=== PATIENT | male | born 1955 ===

== ENCOUNTER 2020-11-10 13:24 | Emergency (ER) | payer SELFPAY ==
[2020-11-10 13:45] VITALS: PULSE 109; RESP 16
--- NOTE | 2020-11-10 13:54 | DI.RAD.S_ITS ---
PROCEDURE: XR CHEST 1V INDICATIONS: post intubation TECHNIQUE: One view of the chest was acquired. COMPARISON: None. FINDINGS: Surgical changes and devices: Endotracheal tube appears well positioned. A right IJ central line is well positioned. Lungs and pleura: Pulmonary edema is present, worse on the right. No pneumothorax or pleural effusion. Mediastinum: Mediastinal contours appear normal. Heart size is normal. Bones and chest wall: No suspicious bony lesions. Overlying soft tissues appear unremarkable. IMPRESSION: 1. Pulmonary edema. 2. Endotracheal tube and right central line are well positioned. Dictated by: Diogo Johnson M.D. on 11/10/2020 at 14:27 Approved by: Diogo Johnson M.D. on 11/10/2020 at 14:28
[2020-11-10 13:58] LABS: COVID19 -Nasal RAPID Negative (Negative)
--- NOTE | 2020-11-10 14:17 | DI.CT.S_ITS ---
PROCEDURE: CT HEAD/BRAIN WO CON INDICATIONS: code TECHNIQUE: Noncontrast 4.5 mm thick angled axial sections acquired from the foramen magnum to the vertex, with coronal and sagittal reformats. For radiation dose reduction, the following was used: automated exposure control, adjustment of mA and/or kV according to patient size. COMPARISON: None. FINDINGS: Image quality: Excellent. CSF spaces: Basal cisterns are patent. No extra-axial fluid collections. Ventricles are normal in size and shape. Brain: No midline shift. No intracranial masses or hemorrhage. Small focus of encephalomalacia in the right caudate nucleus. Periventricular hypodensity most pronounced posteriorly at the posterior horns is most consistent with chronic microvascular ischemic change. Mild calcified atherosclerotic plaque in the distal intracranial ICA. Skull and face: Calvarium and visualized facial bones are intact, without suspicious lesions. Sinuses: Visualized sinuses and mastoids are clear. IMPRESSION: 1. No acute intracranial hemorrhage. 2. Prior small right caudate nucleus lacunar infarct. 3. Findings most compatible with chronic microvascular ischemic disease. Dictated by: Steve Rapp M.D. on 11/10/2020 at 13:50 Approved by: Steve Rapp M.D. on 11/10/2020 at 13:54
[2020-11-10 14:20] LABS: Add Manual Diff / Slide Review NO; Basophils Absolute Auto 100 /uL (0-100); Basophils Percent Auto 0.5 % (0-2); Eosinophils Absolute Auto 100 /uL (0-450); Eosinophils Percent Auto 0.4 % (2-4); Hematocrit 50.5 % (41-53); Hemoglobin 15.3 g/dL (13.5-17.5); Lymphocytes Absolute Auto 6300 /uL (1100-4500); Lymphocytes Percent Auto 24.7 % (25-40); Mean Corpuscular HGB Conc 30.2 % (30-36); Mean Corpuscular Volume 99.4 fL (80-100); Monocytes Absolute Auto 1000 /uL (0-900); Monocytes Percent Auto 3.8 % (3-14); Neutrophils Absolute Auto 18100 /uL (1500-7000); Neutrophils Percent Auto 70.6 % (50-75); Platelet Count 234 X10^3/uL (150-400); Red Blood Cell Count 5.08 X10^6/uL (4.5-5.9); Red Cell Distribution Width 14.6 % (11.6-14.8); White Blood Cell Count 25.6 X10^3/uL (4.5-11.0)
--- NOTE | 2020-11-10 14:23 | DI.CT.S_ITS ---
PROCEDURE: CT ANGIO CHEST PE PROTOCOL INDICATIONS: CODE TECHNIQUE: After the administration of intravenous contrast, 2 mm thick sections acquired from the pulmonary apices to the posterior costophrenic angles. 3-dimensional maximum intensity projection (MIP) coronal and sagittal reformats were then acquired through the thorax. For radiation dose reduction, the following was used: automated exposure control, adjustment of mA and/or kV according to patient size. COMPARISON: [facility], CR, XR CHEST 1V, 11/10/2020, 13:55. FINDINGS: Image quality: Excellent. Pulmonary arteries: Pulmonary arteries are normal in size, and demonstrate no intraluminal filling defects to suggest pulmonary embolism. Lungs and pleura: Extensive ground-glass and consolidative opacity with a dependent predominance. Small right and trace left pleural effusions. No pneumothorax. Trace secretions in the trachea near the endotracheal tube balloon. Endotracheal tube is in the mid trachea and a 3.3 cm above the eric. Mediastinum: Right IJ central venous line with the tip in the middle 3rd of the SVC. Heart size is enlarged particularly the left ventricle, without pericardial effusion. RV to LV ratio less than 1. Mild coronary artery calcifications in the LAD and circumflex. No mediastinal or hilar adenopathy. Thoracic aorta is normal in caliber and enhancement. Esophagus is normal in caliber, without hiatal hernia. Bones and chest wall: No suspicious bony lesions. Nondisplaced sternal fracture. Right 2-4th and left 2nd-5th nondisplaced rib fractures. Thyroid gland is unremarkable. No axillary or supraclavicular adenopathy. Defibrillator pads. Abdomen: There is reflux of contrast into the intrahepatic IVC and hepatic veins. Visualized upper abdominal solid organs appear normal in the early arterial phase of enhancement. IMPRESSION: 1. No pulmonary embolism. 2. Extensive consolidative and ground-glass airspace opacity with a dependent predominance. Small pleural effusions. Findings most compatible with fluid overload/CHF. 3. Cardiomegaly. Reflux of contrast into the intrahepatic IVC and hepatic veins. 4. Nondisplaced sternal fracture. Right 2nd-4th and left 2nd-5th nondisplaced rib fractures are identified. No pneumothorax. 5. Mild coronary artery calcifications. Dictated by: Steve Rapp M.D. on 11/10/2020 at 13:54 Approved by: Steve Rapp M.D. on 11/10/2020 at 14:05
[2020-11-10 14:29] LABS: INR 1.7 (0.9-1.3)
[2020-11-10 14:34] LABS: Magnesium 3.3 mg/dL (1.6-2.3)
[2020-11-10 14:42] LABS: Albumin 2.8 g/dL (3.5-5.0); Albumin Globulin Ratio 0.8 (1.0-2.8); Alkaline Phosphatase 59 U/L (38-126); Aspartate Aminotransferase 201 IU/L (17-59); BUN Creatinine Ratio 7.8 (6-22); Bilirubin Total 0.9 mg/dL (0.2-1.3); Blood Urea Nitrogen 17 mg/dL (9-20); Calcium 7.9 mg/dL (8.4-10.2); Chloride 110 mmol/L (98-107); Creatine Kinase 292 U/L (55-170); Estimated Glomerular Filt Rate 30.2 mL/min (>60); Globulin 3.4 g/dL (1.7-4.1); Glucose 174 mg/dL (80-110); Sodium 140 mmol/L (137-145); Total Protein 6.2 g/dL (6.3-8.2)
--- NOTE | 2020-11-10 14:42 | PC.NURSE ---
Pts friend Yolanda Khile phone number [phone]
[2020-11-10 14:44] LABS: HEMOLYSIS 176 (0-50); Potassium 6.2 mmol/L (3.4-5.1)
[2020-11-10 14:46] LABS: Carbon Dioxide 7 mmol/L (22-32)
[2020-11-10 14:50] LABS: NT-proBNP (BNP-Adult 18+) 8890 pg/mL (<125)
--- NOTE | 2020-11-10 14:50 | PC.NURSE ---
Code blue was called at 1336 and CPR started, pt's time of was called at 1449, see paper charting
[2020-11-10 14:52] LABS: Procalcitonin 0.08 ng/mL (<0.5)
[2020-11-10 14:59] LABS: PTT Partial Thromboplastin Tim 77 SECONDS (26.4-36.2)
[2020-11-10 15:06] LABS: Alanine Aminotransferase 54 IU/L (<50)
[2020-11-10 15:10] LABS: HCO3 ABG 7 mmol/L (22-26); Oxygen Saturation ABG 70 % (95-100); PCO2 ABG 54.7 mmHg (35-45); PO2 ABG 75 mmHg (80-100); TCO2 ABG 8 mmol/L (21-31)
[2020-11-10 15:11] LABS: Fractionated Inspired Oxygen 100
[2020-11-10 15:35] LABS: CKMB % Relative Index 3.3 % (1.5-5.0); Creatine Kinase MB 9.78 ng/mL (<2.37)
--- NOTE | 2020-11-10 15:55 | ED_ITS ---
HPI - General Adult General Stated complaint: SOB Time Seen by Provider: 11/10/20 13:30 History of Present Illness HPI narrative: 65-year-old gentleman with no known medical history of brought in by medics. Apparently he lives in an apartment like space above downstairs neighbors and they heard him fall. Went to check on him and found him unresponsive called medics. On arrival medics report that his oxygen saturations were in the 70s but when up nicely to the mid 90s with non-rebre ather. Patient was not alert enough to give any significant history and has no history noted in the electronic medical record. Friends that live downstairs from him report that he is essentially homeless, they do occasionally check on him and note that he had been complaining of some back pain in the upper portion of his back over the last couple of days. No additional history of any sort is available. Review of Systems Review of Systems ROS Unobtainable: Unobtainable due to medical condition Exam Narrative Exam Narrative: General: Pale with mottling, minimally responsive with shallow respiratory effort and ineffective air exchange HEENT: Dry mucous membranes, normal sclera with pupils at 4 mm and nonreactive, Neck: No JVD, Respiratory: Lungs with minimal respiratory effort. Unable to appreciate any additional clinical findings Cardiac: Very distant cardiac sounds, regular no obvious murmurs Abdomen: Soft, nontender good bowel tones, no flank pain Skin: Cool mottled, obviously poor perfusion and acutely ill. No trauma and no rashes Neurologic: Nonresponsive and not making any purposeful movements Extremities: No trauma, cool to the touch Psych: Unresponsive Procedures Central Line Placement Right IJ: Time Out Performed: No (emergent IV acess required) Patient Placed on Monitor/Pulse Ox: Yes MD Prep: mask, gown and gloves Central Line Prep: Chlorhexidine scrub Ultrasound Used for Placement: Yes Central Line Lumen Inserted: triple Post Procedure: sutured in place, good blood return, all ports aspirated, flushed, capped and sterile dressing applied Post Procedure X-Ray: tip of catheter in good position and no pneumothorax seen Patient Tolerated Procedure: Well Complications: none Intubation Time out performed: No (emergent, respiratory arrest) sedative: Etomidate Mg Given: 20 paralytic: Succinylcholine Mg Given: 100 Laryngoscope: fiber optic video scope ET Tube Size: 7.5 ET Tube Uncuffed: Yes Tube Secured Depth (cm): 23 Tube Secured Location: teeth Tube Placement Confirmation: Visualized tube passing through cords Intubation Complications: difficult intubation, hypotension, hypoxia and other (ongoing CPR) Additional Comments: Initial attempt with directly supervised Medic, using video handled scope. Visualization difficult. No initial color change with CO2. Glidescope used to confirm position. Confirmed in esophagus. Tube easitly repositioned into trachea with glide scope. CPR continued. Modest color change. O2 sats difficult to determine due to poor overall perfusion. End tidal CO2 remained in the mid 20s Course Orders Ordered: ED Orders 11/10/20 13:37 COVID19 Stat 11/10/20 13:54 XR chest 1V Stat 11/10/20 14:00 Blood Culture Stat Complete Blood Count AUTO DIFF Stat Comprehensive Metabolic Panel Stat Lactate (Lactic Acid) Stat Magnesium Stat NT-proBNP (BNP-Adult 18+) Stat Partial Thromboplastin Time Stat Phosphorous Stat Procalcitonin Stat Prothrombin Time INR Stat Troponin & CK Cardiac Panel Stat 11/10/20 14:12 EKG-12 Lead Stat 11/10/20 14:17 CT head/brain wo con Stat 11/10/20 14:21 Arterial Blood Gas Stat 11/10/20 14:23 CT angio chest PE protocol Stat Norepinephrine Bitartrate 4 mg (/ Dextrose) 254 mls @ 30.48 mls/hr IV TITRATE REGGIE; Protocol Fentanyl 1,000 mcg/ Dextrose 250 mls @ 11.445 mls/hr IV TITRATE REGGIE; Protocol Medical Decision Making Medical Records Medical records reviewed: Yes I reviewed the patient's medical records. Lab Data Lab results reviewed: Yes I reviewed the patient's lab results. Result diagrams: 11/10/20 14:00 11/10/20 14:00 Labs: Lab Results 11/10/20 11/10/20 11/10/20 Range/Units 13:37 14:00 14:00 WBC 25.6 H (4.5-11.0) X10^3/uL RBC 5.08 (4.5-5.9) X10^6/uL Hgb 15.3 (13.5-17.5) g/dL Hct 50.5 (41-53) % MCV 99.4 (80-100) fL MCH 30.0 (26-34) PG MCHC 30.2 (30-36) % RDW 14.6 (11.6-14.8) % Plt Count 234 (150-400) X10^3/uL Neut % (Auto) 70.6 (50-75) % Lymph % (Auto) 24.7 L (25-40) % [place] % (Auto) 3.8 (3-14) % Eos % (Auto) 0.4 L (2-4) % Baso % (Auto) 0.5 (0-2) % Neut # (Auto) 64564 H (8623-7496) /uL Lymph # (Auto) 6300 H (5030-4290) /uL [place] # (Auto) 1000 H (0-900) /uL Eos # (Auto) 100 (0-450) /uL Baso # (Auto) 100 (0-100) /uL PT 19.0 H (10.1-12.7) SECONDS INR 1.7 H (0.9-1.3) APTT 77 H* (26.4-36.2) SECONDS ABG pH (7.35-7.45) ABG pCO2 (35-45) mmHg ABG pO2 (80-100) mmHg ABG HCO3 (22-26) mmol/L ABG Total CO2 (21-31) mmol/L ABG O2 Saturation (95-100) % ABG Base Excess (-2-2) mmol/L FiO2 Sodium (137-145) mmol/L Potassium (3.4-5.1) mmol/L Chloride (98-107) mmol/L Carbon Dioxide (22-32) mmol/L BUN (9-20) mg/dL Creatinine (0.66-1.25) mg/dL Estimated GFR (>60) mL/min BUN/Creatinine Ratio (6-22) Glucose (80-110) mg/dL Lactate (0.7-2.1) mmol/L Calcium (8.4-10.2) mg/dL Phosphorus (2.3-3.7) mg/dL Magnesium (1.6-2.3) mg/dL Total Bilirubin (0.2-1.3) mg/dL AST (17-59) IU/L ALT (<50) IU/L Alkaline Phosphatase (38-126) U/L Total Creatine Kinase (55-170) U/L CK-MB (CK-2) (<2.37) ng/mL CK-MB (CK-2) Rel Index (1.5-5.0) % Troponin I (0.01-0.034) ng/mL NT-Pro-B Natriuret Pep (<125) pg/mL Total Protein (6.3-8.2) g/dL Albumin (3.5-5.0) g/dL Globulin (1.7-4.1) g/dL Albumin/Globulin Ratio (1.0-2.8) Procalcitonin (<0.5) ng/mL COVID-19 PCR Negative (Negative) 11/10/20 11/10/20 11/10/20 Range/Units 14:00 14:00 14:00 WBC (4.5-11.0) X10^3/uL RBC (4.5-5.9) X10^6/uL Hgb (13.5-17.5) g/dL Hct (41-53) % MCV (80-100) fL MCH (26-34) PG MCHC (30-36) % RDW (11.6-14.8) % Plt Count (150-400) X10^3/uL Neut % (Auto) (50-75) % Lymph % (Auto) (25-40) % [place] % (Auto) (3-14) % Eos % (Auto) (2-4) % Baso % (Auto) (0-2) % Neut # (Auto) (5046-1721) /uL Lymph # (Auto) (6289-9852) /uL [place] # (Auto) (0-900) /uL Eos # (Auto) (0-450) /uL Baso # (Auto) (0-100) /uL PT (10.1-12.7) SECONDS INR (0.9-1.3) APTT (26.4-36.2) SECONDS ABG pH (7.35-7.45) ABG pCO2 (35-45) mmHg ABG pO2 (80-100) mmHg ABG HCO3 (22-26) mmol/L ABG Total CO2 (21-31) mmol/L ABG O2 Saturation (95-100) % ABG Base Excess (-2-2) mmol/L FiO2 Sodium 140 (137-145) mmol/L Potassium 6.2 H (3.4-5.1) mmol/L Chloride 110 H (98-107) mmol/L Carbon Dioxide 7 L* (22-32) mmol/L BUN 17 (9-20) mg/dL Creatinine 2.19 H (0.66-1.25) mg/dL Estimated GFR 30.2 L (>60) mL/min BUN/Creatinine Ratio 7.8 (6-22) Glucose 174 H (80-110) mg/dL Lactate 16.8 H* (0.7-2.1) mmol/L Calcium 7.9 L (8.4-10.2) mg/dL Phosphorus (2.3-3.7) mg/dL Magnesium (1.6-2.3) mg/dL Total Bilirubin 0.9 (0.2-1.3) mg/dL AST 201 H (17-59) IU/L ALT 54 H (<50) IU/L Alkaline Phosphatase 59 (38-126) U/L Total Creatine Kinase 292 H (55-170) U/L CK-MB (CK-2) 9.78 H (<2.37) ng/mL CK-MB (CK-2) Rel Index 3.3 (1.5-5.0) % Troponin I 2.240 H* (0.01-0.034) ng/mL NT-Pro-B Natriuret Pep 8890 H (<125) pg/mL Total Protein 6.2 L (6.3-8.2) g/dL Albumin 2.8 L (3.5-5.0) g/dL Globulin 3.4 (1.7-4.1) g/dL Albumin/Globulin Ratio 0.8 L (1.0-2.8) Procalcitonin 0.08 (<0.5) ng/mL COVID-19 PCR (Negative) 11/10/20 11/10/20 11/10/20 Range/Units 14:00 14:00 14:21 WBC (4.5-11.0) X10^3/uL RBC (4.5-5.9) X10^6/uL Hgb (13.5-17.5) g/dL Hct (41-53) % MCV (80-100) fL MCH (26-34) PG MCHC (30-36) % RDW (11.6-14.8) % Plt Count (150-400) X10^3/uL Neut % (Auto) (50-75) % Lymph % (Auto) (25-40) % [place] % (Auto) (3-14) % Eos % (Auto) (2-4) % Baso % (Auto) (0-2) % Neut # (Auto) (2421-7425) /uL Lymph # (Auto) (2656-6755) /uL [place] # (Auto) (0-900) /uL Eos # (Auto) (0-450) /uL Baso # (Auto) (0-100) /uL PT (10.1-12.7) SECONDS INR (0.9-1.3) APTT (26.4-36.2) SECONDS ABG pH 6.70 L* (7.35-7.45) ABG pCO2 54.7 H (35-45) mmHg ABG pO2 75 L (80-100) mmHg ABG HCO3 7 L (22-26) mmol/L ABG Total CO2 8 L (21-31) mmol/L ABG O2 Saturation 70 L* (95-100) % ABG Base Excess -29.0 L (-2-2) mmol/L FiO2 100 Sodium (137-145) mmol/L Potassium (3.4-5.1) mmol/L Chloride (98-107) mmol/L Carbon Dioxide (22-32) mmol/L BUN (9-20) mg/dL Creatinine (0.66-1.25) mg/dL Estimated GFR (>60) mL/min BUN/Creatinine Ratio (6-22) Glucose (80-110) mg/dL Lactate (0.7-2.1) mmol/L Calcium (8.4-10.2) mg/dL Phosphorus 11.0 H* (2.3-3.7) mg/dL Magnesium 3.3 H (1.6-2.3) mg/dL Total Bilirubin (0.2-1.3) mg/dL AST (17-59) IU/L ALT (<50) IU/L Alkaline Phosphatase (38-126) U/L Total Creatine Kinase (55-170) U/L CK-MB (CK-2) (<2.37) ng/mL CK-MB (CK-2) Rel Index (1.5-5.0) % Troponin I (0.01-0.034) ng/mL NT-Pro-B Natriuret Pep (<125) pg/mL Total Protein (6.3-8.2) g/dL Albumin (3.5-5.0) g/dL Globulin (1.7-4.1) g/dL Albumin/Globulin Ratio (1.0-2.8) Procalcitonin (<0.5) ng/mL COVID-19 PCR (Negative) Imaging Data Chest x-ray: Radiologist's Impression: FINDINGS: Surgical changes and devices: Endotracheal tube appears well positioned. A right IJ central line is well positioned. Lungs and pleura: Pulmonary edema is present, worse on the right. No pneumothorax or pleural effusion. Mediastinum: Mediastinal contours appear normal. Heart size is normal. Bones and chest wall: No suspicious bony lesions. Overlying soft tissues appear unremarkable. IMPRESSION: 1. Pulmonary edema. 2. Endotracheal tube and right central line are well positioned. Dictated by: Diogo Johnson M.D. on 11/10/2020 at 14:27 CT scan - chest: Radiologist's Impression: FINDINGS: Image quality: Excellent. Pulmonary arteries: Pulmonary arteries are normal in size, and demonstrate no intraluminal filling defects to suggest pulmonary embolism. Lungs and pleura: Extensive ground-glass and consolidative opacity with a dependent predominance. Small right and trace left pleural effusions. No pneumothorax. Trace secretions in the trachea near the endotracheal tube balloon. Endotracheal tube is in the mid trachea and a 3.3 cm above the eric. Mediastinum: Right IJ central venous line with the tip in the middle 3rd of the SVC. Heart size is enlarged particularly the left ventricle, without pericardial eff usion. RV to LV ratio less than 1. Mild coronary artery calcifications in the LAD and circumflex. No mediastinal or hilar adenopathy. Thoracic aorta is normal in caliber and enhancement. Esophagus is normal in caliber, without hiatal hernia. Bones and chest wall: No suspicious bony lesions. Nondisplaced sternal fracture. Right 2-4th and left 2nd-5th nondisplaced rib fractures. Thyroid gland is unremarkable. No axillary or supraclavicular adenopathy. Defibrillator pads. Abdomen: There is reflux of contrast into the intrahepatic IVC and hepatic veins. Visualized upper abdominal solid organs appear normal in the early arterial phase of enhancement. IMPRESSION: 1. No pulmonary embolism. 2. Extensive consolidative and ground-glass airspace opacity with a dependent predominance. Small pleural effusions. Findings most compatible with fluid overload/CHF. 3. Cardiomegaly. Reflux of contrast into the intrahepatic IVC and hepatic veins. 4. Nondisplaced sternal fracture. Right 2nd-4th and left 2nd-5th nondisplaced rib fractures are identified. No pneumothorax. 5. Mild coronary artery calcifications. Dictated by: Steve Rapp M.D. on 11/10/2020 at 13:54 CT scan - head: Radiologist's Impression: INDINGS: Image quality: Excellent. CSF spaces: Basal cisterns are patent. No extra-axial fluid collections. Ventricles are normal in size and shape. Brain: No midline shift. No intracranial masses or hemorrhage. Small focus of encephalomalacia in the right caudate nucleus. Periventricular hypodensity most pronounced posteriorly at the posterior horns is most consistent with chronic microvascular ischemic change. Mild calcified atherosclerotic plaque in the distal intracranial ICA. Skull and face: Calvarium and visualized facial bones are intact, without suspicious lesions. Sinuses: Visualized sinuses and mastoids are clear. IMPRESSION: 1. No acute intracranial hemorrhage. 2. Prior small right caudate nucleus lacunar infarct. 3. Findings most compatible with chronic microvascular ischemic disease. Dictated by: Steve Rapp M.D. on 11/10/2020 at 13:50 [facility] Narrative Medical decision making narrative: 65-year-old gentleman with no known history presents by medics critically ill Within minutes of arrival his shallow respiratory effort was obvious and 100% non-rebreather mask was removed and breathing efforts were assisted with bag- valve mask. Preparations were made for emergent intubation. Respiratory ever since ceased completely just prior to intubation while patient was being ventilated with bag valve mask. See intubation note During intubation patient did lose pulses and CPR was started. He had pulseless electrical activity with slow bradycardia appreciated. He did not have a shockable rhythm. See code notes for details He was eventually given at least 4 rounds of epinephrine, high-quality CPR, successful intubation and oxygenation/ventilation, fluid bolus and bedside ultrasound confirmed cardiac activity and shallow pulse. Remainder of brief ultrasound was done there is no evidence of pericardial effusion, no pneumothorax right or left side, no obvious fluid collection or rupturing abdominal aorta appreciated. With ROSC, he was in a sinus rhythm with blood pressure in the 100 systolic range. He was given etomidate and succinylcholine prior to intubation and was not showing any signs of purposeful movement or awareness with minimal additional sedation used. He remained cool, mottled and pupils were not reactive at 4 mm bilaterally After return of circulation initial presumption was severe sepsis (COVID had returned negative). Central line was placed and ultrasound confirmed significant volume depletion. Fluids were continued, Zosyn was initiated, Levophed was started and EKG was finally able to be obtained. Labs returning with dramatic abnormalities including significant leukocytosis, hyperkalemia at 6.2, renal failure at 2.19 creatinine, lactic acid at 16.8, elevated creatinine kinase at 292 with an elevated MB fraction at 9.78 and a positive troponin at 2.24. ProBNP elevated at 8890. Severe acidosis with a pH of 6.70, CO2 of 54.7, O2 of 75 on 100% and a bicarb of 7 Initial EKG shows a rate of 94 with a right bundle branch block and significant ST elevation in leads 2 leads 3 leads AVF with severe depression in V2 V3 and V4 all consistent with ST-elevation myocardial infarction. Spoke with cardiac interventionalist at [facility], Dr. Ngo at 1421. EKG was transmitted for him. Care is reviewed including concern for ST elevation, unknown prior history, prior arrest and approximately 30 minutes of CPR. He agreed to accept the patient in transfer. We were able to taken to the CT scanner to rule out intracranial hemorrhage as well as large pulmonary embolus. Patient return from CT scanner and again lost pulses and became completely asystolic. CPR was again initiated. Patient was entirely blue and cold at this point. Given the dramatic lab abnormalities with the severe acidosis and recurrent episode of asystole code was called. Time of 1449 In retrospect most likely explanation was that this gentleman began having chest pain and probably a myocardial infarction explaining the back pain of which he would complain to his friends over the last couple of days. After that likely developed severe heart failure with dramatic pulmonary edema and that was the end reason for his respiratory arrest. Suspicions and clinical findings are reviewed with corner shortly after his status. We have notified the neighbors that came in to check on him of his demise but do not have any next of kin to contact this point Critical Care Time Critical Care Time Critical Care Time: Yes Total Critical Care Time: 113 Attestation: Critical care time is separate from other billable procedures including intubation and central line placement. This critical care time includes consultation with family and other consulting doctors, review of records, and interpretation of data from labs, EKGs and imaging as well as managements of respiratory arrest, cardiac arrest, severe acidosis and multi-system organ failure Discharge Plan Departure Patient Disposition: Clinical Impression: Respiratory arrest ST elevation (STEMI) myocardial infarction Qualifiers: Involved coronary artery: unspecified coronary artery Qualified Code(s): I21.3 - ST elevation (STEMI) myocardial infarction of unspecified site CHF (congestive heart failure) Qualifiers: Heart failure type: unspecified Heart failure chronicity: acute Qualified Code(s): I50.9 - Heart failure, unspecified Pulmonary edema Qualifiers: Chronicity: acute Qualified Code(s): J81.0 - Acute pulmonary edema Date/Time: 11/10/20 14:49
[2020-11-10 16:11] LABS: Reflexed Lactate in 2 Hours Y
--- NOTE | 2020-11-10 17:16 | PC.NURSE ---
[facility] returned call.
[2020-11-11 14:17] LABS: Lactate (Lactic Acid) 16.8 mmol/L (0.7-2.1)
[2020-11-11 15:58] LABS: Acinetobacter baumannii Not Detected (Not Detect); Enterobacteriaceae species Not Detected (Not Detect); Enterococcus species Not Detected (Not Detect); Listeria monocytogenes Not Detected (Not Detect); Methicillin-resistant gene Not Detected (Not Detect); Staphylococcus species Detected (Not Detect); Streptococcus agalactiae (Gr B Not Detected (Not Detect); Streptococcus pneumonia Not Detected (Not Detect); Streptococcus pyogenes (Gr A) Not Detected (Not Detect); Streptococcus species Not Detected (Not Detect)
[2020-11-11 15:59] LABS: Candida albicans Not Detected (Not Detect); Candida glabrata Not Detected (Not Detect); Candida krusei Not Detected (Not Detect); Candida parapsilosis Not Detected (Not Detect); Candida tropicalis Not Detected (Not Detect); E. coli Not Detected (Not Detect); Enterobacter cloacae complex Not Detected (Not Detect); Haemophilus influenzae Not Detected (Not Detect); Neisseria meningitidis Not Detected (Not Detect); Proteus species Not Detected (Not Detect); Pseudomonas aeruginosa Not Detected (Not Detect); Serratia marcescens Not Detected (Not Detect)
== END 2020-11-10 18:53 | disposition expired ==
PROVIDERS: Nurse Practitioner Family; Emergency Provider Emergency Medicine
DX: R09.2 Respiratory arrest (principal); I21.3 ST elevation (STEMI) myocardial infarction of unspecified site; I50.9 Heart failure, unspecified; J81.0 Acute pulmonary edema
CPT/HCPCS: 31500; 36573; 36600; 70450; 71045; 71275; 80053; 82550; 82553; 82805; 83605; 83735; 83880; 84100; 84145; 84484; 85025; 85610; 85730; 87040; 87150; 87205; 87635; 92950; 93005; 93010; 94002; 94770; 94799; 99282; 99291; 99292; J0171; J0330; J2543; Q9967